=== PATIENT | female | born 1940 | race Caucasian/White ===

== ENCOUNTER 2021-09-20 13:55 | Emergency (ER) | payer MEDICARE, SELFPAY ==
--- NOTE | ~2021-09-20 | XR_ITS ---
EXAMINATION: XR CHEST CLINICAL INFORMATION: Shortness of breath COMPARISON: None TECHNIQUE: Frontal view of the chest was obtained. FINDINGS: The lungs are well expanded. There is no focal consolidation, edema, or effusion. No pneumothorax. The cardiomediastinal silhouette is within normal limits. No acute osseous abnormality. Sternotomy wires appear intact. XR/XR chest 1V IMPRESSION: No acute pulmonary finding.
[2021-09-20 14:25] VITALS: BP 213/112; PULSE 69; RESP 18; TEMP 36.6; O2SAT 98; BMI 22.6
--- NOTE | 2021-09-20 14:30 | ECG_ITS ---
Test Reason : hi bp Blood Pressure : / mmHG Vent. Rate : 067 BPM Atrial Rate : 067 BPM P-R Int : 192 ms QRS Dur : 096 ms QT Int : 396 ms P-R-T Axes : 000 050 037 degrees QTc Int : 418 ms Sinus rhythm with Premature atrial complexes Nonspecific ST and T wave abnormality Abnormal ECG When compared with ECG of 16-JUL-2009 09:18, Premature atrial complexes are now Present ST now depressed in Lateral leads Referred By: Generic ED Physician Electronically Signed By:KINGSTON JAMISON MD
[2021-09-20 14:47] LABS: MANUAL DIFF FLAG NO
[2021-09-20 14:48] LABS: Basophils Percent Auto 0.4 % (0-2); Eosinophils Percent Auto 0.4 % (0-4); Hematocrit 43.2 % (37.0-47.0); Hemoglobin 14.1 g/dl (12.0-16.0); Lymphocytes Absolute Auto 1.5 X10*3/uL (1.2-4.9); Lymphocytes Percent Auto 30.9 % (20-40); Mean Corpuscular HGB Conc 32.6 g/dl (31.0-35.0); Mean Corpuscular Hemoglobin 30.3 pg (27.0-33.0); Mean Corpuscular Volume 92.7 fL (80.0-98.0); Monocytes Absolute Auto 0.4 X10*3/uL (0.1-1.2); Monocytes Percent Auto 7.6 % (2-11); Neutrophils Absolute Auto 2.9 x10*3/uL (2.0-8.3); Neutrophils Percent Auto 60.7 % (45-73); Platelet Count 187 X10*3/uL (160-400); Red Blood Count 4.66 X10*6/uL (4.20-5.50); Red Cell Distribution Width 13.5 % (11.0-16.0); White Blood Count 4.8 X10*3/uL (4.8-10.8)
--- NOTE | 2021-09-20 15:04 | ED.GENADULT ---
HPI - General Adult General Chief complaint: General Medical Stated complaint: Dehydrated/SOB Time Seen by Provider: 09/20/21 15:04 Source: patient Mode of arrival: ambulatory Limitations: no limitations History of Present Illness HPI narrative: 2 days ago patient began feeling weak. No vomiting no diarrhea. Exteme fatigue. She feels occaisional palpitations lasting minutes. Today she felt short of breath and heaviness. Onset (ago): day(s) Severity: mild Associated symptoms: shortness of breath Related Data Allergies Allergy/AdvReac Type Severity Reaction Status Date / Time No Known Allergies Allergy Unverified 03/05/20 15:14 Review of Systems Constitutional: Constitutional: Reports no additional constitutional complaints Eyes: Eyes: Reports no additional eye complaints ENT: Denies dizziness Cardiovascular: Cardiovascular: Reports no additional cardiovascular complaints Respiratory: Respiratory: Reports as per HPI Gastrointestinal: Gastrointestinal: Reports no additional gastrointestinal complaints Genitourinary: Genitourinary: Reports no additional female genitourinary complaints Musculoskeletal: Musculoskeletal: Reports no additional musculoskeletal complaints Integumentary/Breasts: Skin/Breast: Denies rash Neurologic: Reports system reviewed and no additional complaints, except as documented, Denies dizziness and Denies Sensory deficit (Neuro) Psychiatric: Psychiatric: Denies anxiety PMFSH Past Medical History Medical History HTN (hypertension) Surgical History H/O heart surgery Social History Social History Patient Tobacco Use Status: Never used Tobacco Use of substances other than those prescribed or required for medical reasons: No Advance Directives: No Advance Directives Information Provided: No Physical Exam ED Vital Signs: Vital Signs - 24 hr 09/20/21 14:25 09/20/21 15:15 09/20/21 16:17 Temperature 98 F Pulse Rate 69 68 58 Respiratory Rate 18 18 15 Blood Pressure 213/112 H 197/86 H 167/65 H Pulse Oximetry 98 998 H 98 BMI result Body Mass Index 22.6 Const General: healthy appearing Nutritional Appearance: average body habitus Orientation/consciousness: oriented to person and patient oriented x3 Limitations: no limitations HENMT Head: Yes normal to inspection Ears: external ears normal General nose exam: Normal external nose present Mouth: Normal oral and palatal mucosa present and oropharynx normal Throat: Yes posterior oropharynx normal Eyes General: appearance normal, both eyes and all related structures Neck Neck: Yes normal visual inspection Chest Chest palpation & inspection: normal inspection of the chest Resp Auscultation: clear to auscultation bilaterally Cardio Jugular venous distension: no JVD Rate: regular rate Rhythm: regular rhythm Heart sounds: S1 normal heart sound present and S2 normal heart sound present GI Inspection: Yes normal to inspection Palpation (GI): Soft to palpation, nontender and No hepatosplenomegaly present Auscultation: normal bowel sounds General: Yes no CVA tenderness Back/Spine/Pelvis Back: no CVA tenderness Skin General skin exam: no rashes or lesions noted Neuro General: oriented to person and patient oriented x3 Cranial nerves: Yes CN's II-XII intact bilaterally Motor exam (neuro): 5/5 motor strength present throughout Sensory Exam: No Sensory deficit (Neuro) Extrem General: Yes normal to inspection Psych Appearance: grossly normal Course Reevaluation(s) Reevaluation #1: Patient feeling better, blood pressue down to 165 systolic. BNP with mild elevation but no signs of CHF will dc home Time: 16:29 Medical Decision Making Lab Data Result diagrams: 09/20/21 14:42 09/20/21 14:42 Labs: Lab Results 09/20/21 09/20/21 09/20/21 Range/Units 14:42 14:42 14:42 WBC 4.8 (4.8-10.8) X10*3/uL RBC 4.66 (4.20-5.50) X10*6/uL Hgb 14.1 (12.0-16.0) g/dl Hct 43.2 (37.0-47.0) % MCV 92.7 (80.0-98.0) fL MCH 30.3 (27.0-33.0) pg MCHC 32.6 (31.0-35.0) g/dl RDW 13.5 (11.0-16.0) % Plt Count 187 (160-400) X10*3/uL MPV 10.0 (9.4-12.3) fL Immature Gran % (Auto) 0.0 (0.0-0.4) % Neut % (Auto) 60.7 (45-73) % Lymph % (Auto) 30.9 (20-40) % Borden % (Auto) 7.6 (2-11) % Eos % (Auto) 0.4 (0-4) % Baso % (Auto) 0.4 (0-2) % Lymph # (Auto) 1.5 (1.2-4.9) X10*3/uL Borden # (Auto) 0.4 (0.1-1.2) X10*3/uL Eos # (Auto) 0.0 (0.0-0.4) X10*3/uL Baso # (Auto) 0.0 (0.0-0.2) X10*3/uL Abs Immat Gran (auto) 0.00 (0.00-0.03) X10*3/uL Absolute Neuts (auto) 2.9 (2.0-8.3) x10*3/uL Absolute Nucleated RBC 0.000 (0.0-0.012) X10*3/uL Nucleated RBC % (auto) 0.0 (0.0-0.2) /100WBC Sodium 140 (135-145) mmol/L Potassium 3.8 (3.3-5.1) mmol/L Chloride 103 (96-108) mmol/L Carbon Dioxide 32 H (22-29) mmol/L Anion Gap 9 L (12-20) BUN 16 (9-16) mg/dL Creatinine 0.91 (0.5-1.4) mg/dL Estim Creat Clear Calc 51.3 Estimated GFR 60 Random Glucose 155 H (60-115) mg/dL Calcium 10.0 (8.4-10.2) mg/dL Troponin I High Sens 3.7 (<3.5-17.0) ng/L B-Natriuretic Peptide 261 H (<100) pg/mL Imaging Data Chest x-ray: Radiologist's impression: FINDINGS: The lungs are well expanded. There is no focal consolidation, edema, or effusion. No pneumothorax. The cardiomediastinal silhouette is within normal limits. No acute osseous abnormality. Sternotomy wires appear intact. XR/XR chest 1V IMPRESSION: No acute pulmonary finding. Discharge Plan Discharge Clinical Impression: Essential (primary) hypertension, Sinus arrhythmia Patient Disposition: Home, Self-Care Instructions: Hypertension (ED) Additional Instructions: may need to alternate 50mg with 100mg of losartan every other day. Discuss with your primary care physician Referrals: Hung Pickering III, MD [Primary Care Provider] - 5 days
[2021-09-20 15:05] LABS: Anion Gap 9 (12-20); Blood Urea Nitrogen 16 mg/dL (9-16); Carbon Dioxide 32 mmol/L (22-29); Chloride 103 mmol/L (96-108); Creatinine Clr Calc Pharmacy 51.3; Estimated Glomerular Filt Rate 60; Glucose Random 155 mg/dL (60-115); Potassium 3.8 mmol/L (3.3-5.1); Sodium 140 mmol/L (135-145)
[2021-09-20 15:15] VITALS: BP 197/86; PULSE 68; RESP 18; O2SAT 998
[2021-09-20] MEDS: Losartan Potassium 50 MG TABLET PO (15:16)
[2021-09-20 15:41] LABS: B Type Natriuretic Peptide 261 pg/mL (<100); Troponin-I High Sensitivity 3.7 ng/L (<3.5-17.0)
[2021-09-20 16:17] VITALS: BP 167/65; PULSE 58; RESP 15; O2SAT 98
[2021-09-20 17:03] VITALS: BP 130/73; PULSE 61; RESP 18; O2SAT 98
== END 2021-09-20 17:05 | disposition home or self-care (01) ==
PROVIDERS: Emergency Provider Emergency Medicine; PCP Internal Medicine
DX: I10 Essential (primary) hypertension (principal); I49.8 Other specified cardiac arrhythmias; R06.02 Shortness of breath
CPT/HCPCS: 36415; 71045; 80048; 83880; 84484; 85025; 93005; 99283; 99284

== ENCOUNTER 2022-03-01 10:01 | Emergency (ER) | payer MEDICARE, SELFPAY ==
--- NOTE | ~2022-03-01 | XR_ITS ---
EXAMINATION: XR CHEST CLINICAL INFORMATION: Dyspnea. COMPARISON: 09/20/2021 chest radiographs. TECHNIQUE: Frontal view of the chest was obtained. FINDINGS: No significant abnormality is noted involving the heart, lungs, mediastinum, bony thorax or soft tissues. XR/XR chest 1V IMPRESSION: No acute cardiopulmonary process.
--- NOTE | ~2022-03-01 | CT_ITS ---
EXAMINATION: CT ANGIOGRAM OF THE CHEST WITH AND WITHOUT CONTRAST (CT PULMONARY ANGIOGRAM FOR PE) CLINICAL INFORMATION: Reason for Exam elevated ddimer, PACs, cough, dyspnea COMPARISON: Previous chest x-rays most recent earlier the same day TECHNIQUE: Prior to contrast administration, noncontrast localization images were obtained. Subsequently, multidetector volumetric imaging was performed from the thoracic inlet to below the diaphragms following the administration of 65 mL Omnipaque 350 intravenous contrast. No contrast reaction reported Sagittal, coronal, and MIP oblique sagittal reformatted images were obtained on the CT workstation, uploaded to PACS, and reviewed. This CT examination was performed using dose optimization techniques as appropriate, variously including the following: *Automated exposure control *Adjustment of mA and/or kV according to patient size (this includes techniques or standardized protocols for targeted exams where dose is matched to indication/reason for exam; i.e. extremities or head) *Use of iterative reconstruction technique Total exam dose-length product 244 mGy-cm FINDINGS: QUALITY OF STUDY/CONTRAST BOLUS: Satisfactory. PULMONARY ARTERIES: No central or segmental pulmonary emboli. THORACIC AORTA: No aneurysm or dissection. LUNG: There is biapical pleural parenchymal scarring. There is a scarring or subsegmental atelectasis in the anterior lateral right upper lobe. The lungs are otherwise clear. PLEURA: No pleural effusion or pneumothorax. MEDIASTINUM: The heart is enlarged. No pericardial effusion. No hilar or mediastinal lymphadenopathy. No evidence of septal bowing or right heart strain. CHEST WALL/AXILLA: No axillary or internal mammary lymphadenopathy. OSSEOUS STRUCTURES: No acute or suspicious osseous abnormality. There are degenerative changes of the spine. There are median sternotomy wires. UPPER ABDOMEN: There is reflux of contrast into the hepatic veins to suggest elevated right heart pressures. There is a left renal cyst. There is question of a fold thickening of the stomach versus changes due to underdistention. CT/CT angio chest PE protocol IMPRESSION: No evidence of pulmonary embolism. Enlarged heart. Reflux of contrast into the hepatic veins suggestive of increased right heart pressures. VTE: negative
[2022-03-01 10:15] VITALS: BP 120/78; BP 197/80; PULSE 84; PULSE 85; RESP 18; O2SAT 97; BMI 23.8
--- NOTE | 2022-03-01 10:21 | ECG_ITS ---
Test Reason : palpitations Blood Pressure : / mmHG Vent. Rate : 070 BPM Atrial Rate : 070 BPM P-R Int : 200 ms QRS Dur : 096 ms QT Int : 402 ms P-R-T Axes : 088 052 055 degrees QTc Int : 434 ms Sinus rhythm with Premature atrial complexes Otherwise normal ECG When compared with ECG of 20-SEP-2021 14:28, No significant change was found Referred By: Renee Murry Electronically Signed By:NED BARRAZA
--- NOTE | 2022-03-01 10:40 | ED.URI ---
HPI - URI/Sore Throat General Chief Complaint: General Medical Stated Complaint: DIFF BREATHING,COUGH,WEAKNESS Time Seen by Provider: 03/01/22 10:19 Source: patient Mode of arrival: EMS Limitations: no limitations History of Present Illness HPI Narrative: 81 yo female with hx of HTN, prior PACs notes that she tested positive for COVID 2 weeks ago - had fevers, sore throat and cough. She is not vaccinated. She obtained an Rx for ivermection 15mg daily for 5 days from out of state ([place] prescriber). She notes she did better but has a persistent cough that is nagging to her. She has tried other natural methods such as honey, onions and turmeric. She also reports taking Robitussin DM last night. She came to the ED because of the cough - found to have frequent PACs by EMS. MD elicited complaint: cough Pertinent past history: other (COVID 2 weeks ago) Onset (ago): week(s) (2) Consistency: intermittent Severity: moderate Able to tolerate fluids by mouth: Yes Exacerbating factors: other (coughing) Relieving factors: other (natural measures, OTC cough medicine) Associated symptoms: cough Treatments prior to arrival: cold medicine and other Related Data Previous Rx's Medication Instructions Recorded benzonatate 100 mg capsule 100 mg PO TID PRN cough #14 caps 03/01/22 Allergies Allergy/AdvReac Type Severity Reaction Status Date / Time No Known Allergies Allergy Unverified 03/05/20 15:14 Review of Systems Review of Systems: Constitutional : No Fever, No Chills ENT/Mouth : No sore throat, No Rhinorrhea Eyes: No Eye Pain, No Swelling, No Redness Cardiovascular : No Chest Pain, No SOB, pos cough Respiratory : pos Cough, No Sputum, No Wheezing Gastrointestinal : No Nausea, No Vomiting, No Diarrhea Genitourinary : No Dysuria, No Urinary Frequency, No Hematuria, Musculoskeletal : No joint pain, No Myalgias, No Joint Swelling Skin : No Skin Lesions, No rash Neuro : No Weakness, No Numbness, No Dizziness, No Headache Psych : No Anxiety/Panic, No Depression Heme/Lymph: No Bruising, No Bleeding,No Lymphadenopathy Endocrine : No Polyuria, No Polydipsia All other systems reviewed and are negative [facility] Past Medical History Attestation statement: The following information was validated with the patient. Medical History HTN (hypertension) PAC (premature atrial contraction) Surgical History H/O heart surgery Social History Social History Patient Tobacco Use Status: Never used Tobacco Use of substances other than those prescribed or required for medical reasons: No Advance Directives: Yes Advance Directives Information Provided: Yes Advance Directives on File: No Physical Exam Vital Signs: Vital Signs: Last Vital Signs Pulse 84 03/01/22 10:15 Resp 18 03/01/22 10:15 BP 197/80 H 03/01/22 10:15 Pulse Ox 97 03/01/22 10:15 O2 Del Method 03/01/22 10:15 BMI result Body Mass Index 23.8 Appearance: Alert. Oriented X3. No acute distress. Eyes: Pupils equal, round and reactive to light. ENT: Pharynx normal. Neck: Normal inspection. Neck supple. CVS: irregular heart rate and rhythm. Pulses normal. Respiratory: No respiratory distress. Breath sounds normal. Abdomen: Soft and non-tender. Skin: Skin warm and dry. Normal skin color. Normal skin turgor. Extremities: No lower extremity edema. No calf ttp Neuro: Oriented X 3. No motor deficit. No sensory deficit. Course Course Course Narrative: ddimer is above VTE limit will order CTA negative PE stable for DC MDM - URI/Sore Throat MDM Narrative Medical decision making narrative: 81 yo female with hx of HTN, PACs in past, unvaccinated for COVID - dx 2 weeks ago treated herself with 15mg ivermectin daily for 5 days. At this time she presents with cough that is annoying to her. It will not resolve. She is not hypoxic, has no CP. She is HTNive but this could be due to the fact that she took OTC medications last night that likely caused increase in her BP. She has chronic PACs - labs, CXR for pneumonia ordered. Dispo per results and finidngs. Lab Data Result diagrams: 03/01/22 10:44 03/01/22 10:44 Labs: Lab Results 03/01/22 03/01/22 03/01/22 Range/Units 10:44 10:44 10:44 WBC 5.0 (4.8-10.8) X10*3/uL RBC 4.70 (4.20-5.50) X10*6/uL Hgb 13.8 (12.0-16.0) g/dl Hct 41.5 (37.0-47.0) % MCV 88.3 (80.0-98.0) fL MCH 29.4 (27.0-33.0) pg MCHC 33.3 (31.0-35.0) g/dl RDW 13.6 (11.0-16.0) % Plt Count 220 (160-400) X10*3/uL MPV 10.0 (9.4-12.3) fL Immature Gran % (Auto) 0.4 (0.0-0.4) % Neut % (Auto) 66.0 (45-73) % Lymph % (Auto) 24.6 (20-40) % Banner % (Auto) 8.4 (2-11) % Eos % (Auto) 0.4 (0-4) % Baso % (Auto) 0.2 (0-2) % Lymph # (Auto) 1.2 (1.2-4.9) X10*3/uL Banner # (Auto) 0.4 (0.1-1.2) X10*3/uL Eos # (Auto) 0.0 (0.0-0.4) X10*3/uL Baso # (Auto) 0.0 (0.0-0.2) X10*3/uL Abs Immat Gran (auto) 0.02 (0.00-0.03) X10*3/uL Absolute Neuts (auto) 3.3 (2.0-8.3) x10*3/uL Absolute Nucleated RBC 0.000 (0.0-0.012) X10*3/uL Nucleated RBC % (auto) 0.0 (0.0-0.2) /100WBC D-Dimer High Sensitivty 320 NG/ML Sodium 142 (135-145) mmol/L Potassium 4.1 (3.3-5.1) mmol/L Chloride 102 (96-108) mmol/L Carbon Dioxide 32 H (22-29) mmol/L Anion Gap 12 (12-20) BUN 17 H (9-16) mg/dL Creatinine 0.78 (0.5-1.4) mg/dL Estim Creat Clear Calc 59.0 Estimated GFR > 60 Random Glucose 93 (60-115) mg/dL Calcium 9.5 (8.4-10.2) mg/dL Magnesium 2.2 (1.6-2.6) mg/dL Total Bilirubin 0.9 (0.0-1.0) mg/dL Direct Bilirubin 0.4 (0.0-0.5) mg/dL AST 31 (5-31) U/L ALT 37 H (0-31) U/L Alkaline Phosphatase 69 (39-117) U/L Troponin I High Sens (<3.5-17.0) ng/L Total Protein 7.2 (6.5-8.0) g/dL Albumin 4.1 (3.5-5.0) g/dL 03/01/22 Range/Units 10:44 WBC (4.8-10.8) X10*3/uL RBC (4.20-5.50) X10*6/uL Hgb (12.0-16.0) g/dl Hct (37.0-47.0) % MCV (80.0-98.0) fL MCH (27.0-33.0) pg MCHC (31.0-35.0) g/dl RDW (11.0-16.0) % Plt Count (160-400) X10*3/uL MPV (9.4-12.3) fL Immature Gran % (Auto) (0.0-0.4) % Neut % (Auto) (45-73) % Lymph % (Auto) (20-40) % Banner % (Auto) (2-11) % Eos % (Auto) (0-4) % Baso % (Auto) (0-2) % Lymph # (Auto) (1.2-4.9) X10*3/uL Banner # (Auto) (0.1-1.2) X10*3/uL Eos # (Auto) (0.0-0.4) X10*3/uL Baso # (Auto) (0.0-0.2) X10*3/uL Abs Immat Gran (auto) (0.00-0.03) X10*3/uL Absolute Neuts (auto) (2.0-8.3) x10*3/uL Absolute Nucleated RBC (0.0-0.012) X10*3/uL Nucleated RBC % (auto) (0.0-0.2) /100WBC D-Dimer High Sensitivty NG/ML Sodium (135-145) mmol/L Potassium (3.3-5.1) mmol/L Chloride (96-108) mmol/L Carbon Dioxide (22-29) mmol/L Anion Gap (12-20) BUN (9-16) mg/dL Creatinine (0.5-1.4) mg/dL Estim Creat Clear Calc Estimated GFR Random Glucose (60-115) mg/dL Calcium (8.4-10.2) mg/dL Magnesium (1.6-2.6) mg/dL Total Bilirubin (0.0-1.0) mg/dL Direct Bilirubin (0.0-0.5) mg/dL AST (5-31) U/L ALT (0-31) U/L Alkaline Phosphatase (39-117) U/L Troponin I High Sens < 3.5 (<3.5-17.0) ng/L Total Protein (6.5-8.0) g/dL Albumin (3.5-5.0) g/dL ECG Data Attestation: I personally reviewed and interpreted this ECG as follows: ECG interpretation date: 03/01/22 ECG interpretation time: 10:59 Interpretation: Rate: 70 Rhythm: NSR with PACs frequent Anderson: normal Normal P waves. Normal DONTE. Normal QRS complex. ST T wave : normal no KARLIE qTC: normal prior studies: no acute ischemia The study has been interpreted contemporaneously by me. . Discharge Plan Discharge Clinical Impression: Acute viral syndrome Cough Qualifiers: Cough type: subacute Qualified Code(s): R05.2 - Subacute cough Patient Disposition: Home, Self-Care Instructions: Cold Symptoms (ED), Acute Cough (ED) Additional Instructions: return to ED for any worsening symptoms or concerns no over the counter cough medicines unless they are for patients with high blood pressure keep an eye on your blood pressure - your heart appears large on CT scan please follow up with PCP FINDINGS: QUALITY OF STUDY/CONTRAST BOLUS: Satisfactory. PULMONARY ARTERIES: No central or segmental pulmonary emboli.? THORACIC AORTA: No aneurysm or dissection. LUNG: There is biapical pleural parenchymal scarring. There is a scarring or subsegmental atelectasis in the anterior lateral right upper lobe. The lungs are otherwise clear. PLEURA: No pleural effusion or pneumothorax. MEDIASTINUM: The heart is enlarged. No pericardial effusion.? No hilar or mediastinal lymphadenopathy.? No evidence of septal bowing or right heart strain. CHEST WALL/AXILLA: No axillary or internal mammary lymphadenopathy. OSSEOUS STRUCTURES: No acute or suspicious osseous abnormality. There are degenerative changes of the spine. There are median sternotomy wires. UPPER ABDOMEN: There is reflux of contrast into the hepatic veins to suggest elevated right heart pressures. There is a left renal cyst. There is question of a fold thickening of the stomach versus changes due to underdistention. CT/CT angio chest PE protocol IMPRESSION: No evidence of pulmonary embolism. Enlarged heart. Reflux of contrast into the hepatic veins suggestive of increased right heart pressures. ? VTE: negative Prescriptions: New benzonatate 100 mg capsule 100 mg PO TID PRN (Reason: cough) Qty: 14 0RF Referrals: Physician,Unknown J [Primary Care Provider] - (PCP in 1 week)
[2022-03-01 10:51] LABS: MANUAL DIFF FLAG NO
[2022-03-01 10:54] LABS: Basophils Percent Auto 0.2 % (0-2); Eosinophils Percent Auto 0.4 % (0-4); Hematocrit 41.5 % (37.0-47.0); Hemoglobin 13.8 g/dl (12.0-16.0); Imm Gran Abs Auto 0.02 X10*3/uL (0.00-0.03); Imm Gran Pct Auto 0.4 % (0.0-0.4); Lymphocytes Absolute Auto 1.2 X10*3/uL (1.2-4.9); Lymphocytes Percent Auto 24.6 % (20-40); Mean Corpuscular HGB Conc 33.3 g/dl (31.0-35.0); Mean Corpuscular Hemoglobin 29.4 pg (27.0-33.0); Mean Corpuscular Volume 88.3 fL (80.0-98.0); Monocytes Absolute Auto 0.4 X10*3/uL (0.1-1.2); Monocytes Percent Auto 8.4 % (2-11); Neutrophils Absolute Auto 3.3 x10*3/uL (2.0-8.3); Platelet Count 220 X10*3/uL (160-400); Red Cell Distribution Width 13.6 % (11.0-16.0)
[2022-03-01 11:03] LABS: D Dimer High Sensitivity 320 NG/ML
[2022-03-01 11:08] LABS: Alanine Aminotransferase 37 U/L (0-31); Albumin Level 4.1 g/dL (3.5-5.0); Alkaline Phosphatase 69 U/L (39-117); Anion Gap 12 (12-20); Aspartate Amino Transferase 31 U/L (5-31); Bilirubin Direct 0.4 mg/dL (0.0-0.5); Bilirubin Total 0.9 mg/dL (0.0-1.0); Blood Urea Nitrogen 17 mg/dL (9-16); Calcium 9.5 mg/dL (8.4-10.2); Carbon Dioxide 32 mmol/L (22-29); Chloride 102 mmol/L (96-108); Estimated Glomerular Filt Rate > 60; Glucose Random 93 mg/dL (60-115); Magnesium 2.2 mg/dL (1.6-2.6); Potassium 4.1 mmol/L (3.3-5.1); Sodium 142 mmol/L (135-145); Total Protein 7.2 g/dL (6.5-8.0)
[2022-03-01 11:12] LABS: Troponin-I High Sensitivity < 3.5 ng/L (<3.5-17.0)
[2022-03-01] MEDS: iohexoL 350 MG/ML 100 ML INFUS..BTL IV (12:09)
== END 2022-03-01 14:35 | disposition home or self-care (01) ==
PROVIDERS: Emergency Provider Emergency Medicine
DX: B34.9 Viral infection, unspecified (principal); R05.2 Subacute cough; I10 Essential (primary) hypertension; I49.1 Atrial premature depolarization
CPT/HCPCS: 36415; 71045; 71275; 80048; 80076; 83735; 84484; 85025; 85379; 93005; 99284; Q9967

== ENCOUNTER 2022-05-09 12:09 | Emergency (ER) | payer MEDICARE, SELFPAY ==
--- NOTE | ~2022-05-09 | XR_ITS ---
EXAMINATION: XR CHEST CLINICAL INFORMATION: Generalized weakness. Rule out pneumonia COMPARISON: None TECHNIQUE: Frontal view of the chest was obtained. FINDINGS: The lungs are well-expanded and clear of acute process. The heart size and pulmonary vascularity is normal. There is mild dextro scoliosis dorsal spine. No lytic process. XR/XR chest 1V IMPRESSION: Unremarkable chest examination.
[2022-05-09 12:11] VITALS: BP 215/102; PULSE 67; RESP 18; TEMP 36.6; O2SAT 98; BMI 22.8
--- NOTE | 2022-05-09 12:11 | ECG_ITS ---
Test Reason : palpatations Blood Pressure : / mmHG Vent. Rate : 059 BPM Atrial Rate : 059 BPM P-R Int : 170 ms QRS Dur : 084 ms QT Int : 434 ms P-R-T Axes : 000 046 033 degrees QTc Int : 429 ms Sinus bradycardia with Premature supraventricular complexes RSR' or QR pattern in V1 suggests right ventricular conduction delay Borderline ECG When compared with ECG of 01-MAR-2022 10:24, No significant change was found Referred By: Juanito Reilly Electronically Signed By:IVANNA NGUYEN MD
--- NOTE | 2022-05-09 12:12 | ED.GENADULT ---
HPI - General Adult General Chief complaint: Arrhythmia/Palpitations Stated complaint: weak high bp Time Seen by Provider: 05/09/22 13:29 Related Data Previous Rx's Medication Instructions Recorded benzonatate 100 mg capsule 100 mg PO TID PRN cough #14 caps 03/01/22 Allergies Allergy/AdvReac Type Severity Reaction Status Date / Time No Known Allergies Allergy Unverified 03/05/20 15:14 [facility] Past Medical History Medical History HTN (hypertension) PAC (premature atrial contraction) Surgical History H/O heart surgery Social History Social History Patient Tobacco Use Status: Never used Tobacco Advance Directives: No Advance Directives Information Provided: Yes Physical Exam ED Vital Signs: BMI result Body Mass Index 22.8 Course Course Course Narrative: 81 year old female presents to the ED with multiple complaints. Her of 58 years on April 28 She states it was very sudden. She now lives alone and feels like she is dehydrated and not drinking enough. She denies any falls or injuries but states she gets dehydrated easily She denies fever chills cough nausea vomiting or diarrhea. Since Monday has felt tired and that she feels she needs to get check for her blood pressure and decreased appetite. No belly pain fever chills cough. Normal strength. I will check labs cbc, bmp and try to give fluids. I will have the patient seen after this exam. Seen in triage as a medical screening exam Medications Administered Discontinued Medications Generic Name Dose Route Start Last Admin Trade Name Freq PRN Reason Stop Dose Admin Sodium Chloride 1,000 mls @ 999 mls/hr 05/09/22 12:15 05/09/22 17:00 Ns IV 05/09/22 13:15 Infused .Q1H1M JESUS Infusion Sodium Chloride 1,000 mls @ 999 mls/hr 05/09/22 13:48 05/09/22 15:43 Ns IV 05/09/22 14:48 Infused .Q1H1M ONE Infusion Medical Decision Making Lab Data Result diagrams: 05/09/22 12:37 05/09/22 12:37 Labs: Lab Results 11/05/09/22 05/09/22 Range/Units 12:37 12:37 13:53 WBC 5.9 (4.8-10.8) X10*3/uL RBC 4.74 (4.20-5.50) X10*6/uL Hgb 14.4 (12.0-16.0) g/dl Hct 43.4 (37.0-47.0) % MCV 91.6 (80.0-98.0) fL MCH 30.4 (27.0-33.0) pg MCHC 33.2 (31.0-35.0) g/dl RDW 13.7 (11.0-16.0) % Plt Count 192 (160-400) X10*3/uL MPV 10.3 (9.4-12.3) fL Immature Gran % (Auto) 0.2 (0.0-0.4) % Neut % (Auto) 68.2 (45-73) % Lymph % (Auto) 23.5 (20-40) % [place] % (Auto) 6.6 (2-11) % Eos % (Auto) 1.0 (0-4) % Baso % (Auto) 0.5 (0-2) % Lymph # (Auto) 1.4 (1.2-4.9) X10*3/uL [place] # (Auto) 0.4 (0.1-1.2) X10*3/uL Eos # (Auto) 0.1 (0.0-0.4) X10*3/uL Baso # (Auto) 0.0 (0.0-0.2) X10*3/uL Abs Immat Gran (auto) 0.01 (0.00-0.03) X10*3/uL Absolute Neuts (auto) 4.0 (2.0-8.3) x10*3/uL Absolute Nucleated RBC 0.000 (0.0-0.012) X10*3/uL Nucleated RBC % (auto) 0.0 (0.0-0.2) /100WBC Sodium 138 (135-145) mmol/L Potassium 3.6 (3.3-5.1) mmol/L Chloride 101 (96-108) mmol/L Carbon Dioxide 31 H (22-29) mmol/L Anion Gap 10 L (12-20) BUN 13 (9-16) mg/dL Creatinine 0.81 (0.5-1.4) mg/dL Estim Creat Clear Calc 56.8 Estimated GFR > 60 Random Glucose 114 (60-115) mg/dL Calcium 9.5 (8.4-10.2) mg/dL Total Bilirubin 0.9 (0.0-1.0) mg/dL Direct Bilirubin 0.3 (0.0-0.5) mg/dL AST 25 (5-31) U/L ALT 22 (0-31) U/L Alkaline Phosphatase 60 (39-117) U/L Troponin I High Sens 4.4 (<3.5-17.0) ng/L Total Protein 7.0 (6.5-8.0) g/dL Albumin 4.1 (3.5-5.0) g/dL Lipase 22 (8-78) U/L Urine Color Urine Appearance Urine pH (5.0-9.0) Ur Specific [place] (1.005-1.025) Urine Protein (Neg-Trace) mg/dL Urine Glucose (UA) (Negative) mg/dL Urine Ketones (Negative) mg/dL Urine Blood (Negative) Urine Nitrite (Negative) Ur Leukocyte Esterase (Negative) Urine RBC (0-2) /HPF Urine WBC (0-5) /HPF Ur Squamous Epith Cells (0-2) /HPF Urine Bacteria (None Seen) Hyaline Casts (0-2) /LPF 05/09/ Range/Units 13:53 WBC (4.8-10.8) X10*3/uL RBC (4.20-5.50) X10*6/uL Hgb (12.0-16.0) g/dl Hct (37.0-47.0) % MCV (80.0-98.0) fL MCH (27.0-33.0) pg MCHC (31.0-35.0) g/dl RDW (11.0-16.0) % Plt Count (160-400) X10*3/uL MPV (9.4-12.3) fL Immature Gran % (Auto) (0.0-0.4) % Neut % (Auto) (45-73) % Lymph % (Auto) (20-40) % [place] % (Auto) (2-11) % Eos % (Auto) (0-4) % Baso % (Auto) (0-2) % Lymph # (Auto) (1.2-4.9) X10*3/uL [place] # (Auto) (0.1-1.2) X10*3/uL Eos # (Auto) (0.0-0.4) X10*3/uL Baso # (Auto) (0.0-0.2) X10*3/uL Abs Immat Gran (auto) (0.00-0.03) X10*3/uL Absolute Neuts (auto) (2.0-8.3) x10*3/uL Absolute Nucleated RBC (0.0-0.012) X10*3/uL Nucleated RBC % (auto) (0.0-0.2) /100WBC Sodium (135-145) mmol/L Potassium (3.3-5.1) mmol/L Chloride (96-108) mmol/L Carbon Dioxide (22-29) mmol/L Anion Gap (12-20) BUN (9-16) mg/dL Creatinine (0.5-1.4) mg/dL Estim Creat Clear Calc Estimated GFR Random Glucose (60-115) mg/dL Calcium (8.4-10.2) mg/dL Total Bilirubin (0.0-1.0) mg/dL Direct Bilirubin (0.0-0.5) mg/dL AST (5-31) U/L ALT (0-31) U/L Alkaline Phosphatase (39-117) U/L Troponin I High Sens (<3.5-17.0) ng/L Total Protein (6.5-8.0) g/dL Albumin (3.5-5.0) g/dL Lipase (8-78) U/L Urine Color Straw Urine Appearance Hazy Urine pH 7.5 (5.0-9.0) Ur Specific [place] 1.010 (1.005-1.025) Urine Protein Negative (Neg-Trace) mg/dL Urine Glucose (UA) Negative (Negative) mg/dL Urine Ketones Negative (Negative) mg/dL Urine Blood Negative (Negative) Urine Nitrite Negative (Negative) Ur Leukocyte Esterase Trace H (Negative) Urine RBC 0-2 (0-2) /HPF Urine WBC 0-5 (0-5) /HPF Ur Squamous Epith Cells 3-5 (0-2) /HPF Urine Bacteria Trace (None Seen) Hyaline Casts 0-2 (0-2) /LPF Discharge Plan Discharge Clinical Impression: Generalized weakness, Dehydration, Feeling grief Patient Disposition: Home, Self-Care Instructions: Dehydration (ED) Prescriptions: No Action benzonatate 100 mg capsule 100 mg PO TID PRN (Reason: cough) Qty: 14 0RF Referrals: Physician,Unknown J [Primary Care Provider] - Interventions: ED Discharge Assessment Last Done: 05/09/22 17:33 Discharge Date/Time: 05/09/22 17:10
[2022-05-09 12:41] LABS: MANUAL DIFF FLAG NO
[2022-05-09 12:46] LABS: Basophils Percent Auto 0.5 % (0-2); Eosinophils Absolute Auto 0.1 X10*3/uL (0.0-0.4); Hematocrit 43.4 % (37.0-47.0); Hemoglobin 14.4 g/dl (12.0-16.0); Imm Gran Abs Auto 0.01 X10*3/uL (0.00-0.03); Imm Gran Pct Auto 0.2 % (0.0-0.4); Lymphocytes Absolute Auto 1.4 X10*3/uL (1.2-4.9); Lymphocytes Percent Auto 23.5 % (20-40); Mean Corpuscular HGB Conc 33.2 g/dl (31.0-35.0); Mean Corpuscular Hemoglobin 30.4 pg (27.0-33.0); Mean Corpuscular Volume 91.6 fL (80.0-98.0); Mean Platelet Volume 10.3 fL (9.4-12.3); Monocytes Absolute Auto 0.4 X10*3/uL (0.1-1.2); Monocytes Percent Auto 6.6 % (2-11); Neutrophils Percent Auto 68.2 % (45-73); Platelet Count 192 X10*3/uL (160-400); Red Blood Count 4.74 X10*6/uL (4.20-5.50); Red Cell Distribution Width 13.7 % (11.0-16.0); White Blood Count 5.9 X10*3/uL (4.8-10.8)
[2022-05-09 13:01] LABS: Alanine Aminotransferase 22 U/L (0-31); Albumin Level 4.1 g/dL (3.5-5.0); Alkaline Phosphatase 60 U/L (39-117); Anion Gap 10 (12-20); Aspartate Amino Transferase 25 U/L (5-31); Bilirubin Direct 0.3 mg/dL (0.0-0.5); Bilirubin Total 0.9 mg/dL (0.0-1.0); Blood Urea Nitrogen 13 mg/dL (9-16); Calcium 9.5 mg/dL (8.4-10.2); Carbon Dioxide 31 mmol/L (22-29); Chloride 101 mmol/L (96-108); Creatinine Clr Calc Pharmacy 56.8; Estimated Glomerular Filt Rate > 60; Glucose Random 114 mg/dL (60-115); Lipase 22 U/L (8-78); Potassium 3.6 mmol/L (3.3-5.1); Sodium 138 mmol/L (135-145)
[2022-05-09 13:24] VITALS: BP 173/93; PULSE 60; RESP 16; TEMP 36.7; O2SAT 99
--- NOTE | 2022-05-09 13:49 | ED_ITS ---
HPI - General Adult General Chief complaint: Arrhythmia/Palpitations Stated complaint: weak high bp Time Seen by Provider: 05/09/22 13:29 Source: patient and family (Daughter) Mode of arrival: ambulatory Limitations: no limitations History of Present Illness HPI narrative: 81-year-old female came in for evaluation of generalized weakness and possible dehydration. Patient is prone to dehydration if she does not drink fluids, patient admitted that she is not drinking enough fluid and felt dehydrated since yesterday with generalized weakness, patient is forcing to drink water with electrolyte powder since yesterday, known to have history of high blood pressure take losartan 100 mg daily, patient also take propanolol prescribed as p.r.n. palpitation took 1 in the morning. No CP, no SOB, no abdominal pain. Related Data Previous Rx's Medication Instructions Recorded benzonatate 100 mg capsule 100 mg PO TID PRN cough #14 caps 03/01/22 Allergies Allergy/AdvReac Type Severity Reaction Status Date / Time No Known Allergies Allergy Unverified 03/05/20 15:14 Review of Systems Review of Systems: All other systems are reviewed and are negative Constitutional: Reports as per HPI and Reports no additional constitutional complaints Eyes: Reports as per HPI and Reports no additional eye complaints Reports system reviewed and no additional complaints, except as documented Cardiovascular: Reports as per HPI and Reports no additional cardiovascular complaints Respiratory: Reports as per HPI and Reports no additional respiratory complaints Gastrointestinal: Reports as per HPI and Reports no additional gastrointestinal complaints Genitourinary: Reports no additional female genitourinary complaints Musculoskeletal: Reports no additional musculoskeletal complaints Skin/Breast: Reports system reviewed and no additional complaints, except as docu Psychiatric: Reports no additional psychiatric complaints Endocrine: Reports no additional endocrine complaints Hematologic/Lymphatic: Reports no additional hematologic/lymphatic complaints Allergic/Immunologic: Reports no additional allergic/immunologic complaints Reports system reviewed and no additional complaints, except as documented and Reports Abnormal speech present [facility] Past Medical History Medical History HTN (hypertension) PAC (premature atrial contraction) Surgical History H/O heart surgery Social History Social History Patient Tobacco Use Status: Never used Tobacco Advance Directives: No Advance Directives Information Provided: Yes Physical Exam ED Vital Signs: Vital Signs - 24 hr 05/09/22 12:11 05/09/22 13:24 05/09/22 15:48 Temperature 97.8 F 98.0 F 97.9 F Pulse Rate 67 60 66 Respiratory Rate 18 16 18 Blood Pressure 215/102 H 173/93 H 170/77 H Pulse Oximetry 98 99 97 Oxygen Delivery Method Room Air Room Air Room Air BMI result Body Mass Index 22.8 Vital signs have been reviewed as appeared to be correct. Blood pressure normal. Heart rate normal. Respiration rate normal. Temperature normal. Oxygen saturation normal. Appearance: Alert. Oriented X3. No acute distress. Head: Normal external exam. Normocephalic. Atraumatic. No Dalton signs noted. No raccoon eyes noted Eyes: PERRLA. EOMI. Conjunctiva and sclera normal. Eyelids normal. ENT: TM's Normal. Pharynx normal. Uvula midline. Moist mucous membranes. No trismus noted. No drooling noted. No muffled voice noted. Neck: Normal inspection. Neck supple. FROM. No adenopathy. Thyroid Normal. No meningeal signs. No neck mass noted. CVS: Normal heart rate and rhythm. Heart sound normal. No murmurs noted. Pulses normal throughout. Respiratory: No respiratory distress. Painless inspiration. Breath sounds normal. No wheezes/rales/rhonchi noted. Chest nontender. No accessory muscle usage noted or decreased air movement noted. Abdomen: Soft and nontender. Bowel sounds normal in all 4 quadrants. No distention noted. No organomegaly noted. No visible injury noted. Back: No CVA tenderness. Full range of motion noted. Skin: Skin warm and dry. Normal skin color. Normal skin turgor. No rashes/lesions/lacerations noted. Extremities: No lower extremity edema. Extremities exhibit normal range of motion. Extremities nontender. Neuro: Oriented X 3. Cranial nerve exam: II-XII are grossly intact No motor deficit. No sensory deficit. Reflexes normal. Course Course Course Narrative: 81-year-old female came in for generalized weakness and subjective feeling of dehydration, patient labs were unremarkable, patient has no UTI symptoms, patient received fluids felt better after the fluids, patient lost her 2 weeks ago which could be secondary to a grieving feeling no depression, no SI, no HI. Medications Administered Discontinued Medications Generic Name Dose Route Start Last Admin Trade Name Delta PRN Reason Stop Dose Admin Sodium Chloride 1,000 mls @ 999 mls/hr 05/09/22 12:15 05/09/22 15:44 Ns IV 05/09/22 13:15 999 mls/hr .Q1H1M JESUS Administration Sodium Chloride 1,000 mls @ 999 mls/hr 05/09/22 13:48 05/09/22 15:43 Ns IV 05/09/22 14:48 Infused .Q1H1M ONE Infusion Medical Decision Making Lab Data Lab results reviewed: Yes I reviewed the patient's lab results. Result diagrams: 05/09/22 12:37 05/09/22 12:37 Labs: Lab Results 05/09/22 05/09/22 05/09/22 Range/Units 12:37 12:37 13:53 WBC 5.9 (4.8-10.8) X10*3/uL RBC 4.74 (4.20-5.50) X10*6/uL Hgb 14.4 (12.0-16.0) g/dl Hct 43.4 (37.0-47.0) % MCV 91.6 (80.0-98.0) fL MCH 30.4 (27.0-33.0) pg MCHC 33.2 (31.0-35.0) g/dl RDW 13.7 (11.0-16.0) % Plt Count 192 (160-400) X10*3/uL MPV 10.3 (9.4-12.3) fL Immature Gran % (Auto) 0.2 (0.0-0.4) % Neut % (Auto) 68.2 (45-73) % Lymph % (Auto) 23.5 (20-40) % [place] % (Auto) 6.6 (2-11) % Eos % (Auto) 1.0 (0-4) % Baso % (Auto) 0.5 (0-2) % Lymph # (Auto) 1.4 (1.2-4.9) X10*3/uL [place] # (Auto) 0.4 (0.1-1.2) X10*3/uL Eos # (Auto) 0.1 (0.0-0.4) X10*3/uL Baso # (Auto) 0.0 (0.0-0.2) X10*3/uL Abs Immat Gran (auto) 0.01 (0.00-0.03) X10*3/uL Absolute Neuts (auto) 4.0 (2.0-8.3) x10*3/uL Absolute Nucleated RBC 0.000 (0.0-0.012) X10*3/uL Nucleated RBC % (auto) 0.0 (0.0-0.2) /100WBC Sodium 138 (135-145) mmol/L Potassium 3.6 (3.3-5.1) mmol/L Chloride 101 (96-108) mmol/L Carbon Dioxide 31 H (22-29) mmol/L Anion Gap 10 L (12-20) BUN 13 (9-16) mg/dL Creatinine 0.81 (0.5-1.4) mg/dL Estim Creat Clear Calc 56.8 Estimated GFR > 60 Random Glucose 114 (60-115) mg/dL Calcium 9.5 (8.4-10.2) mg/dL Total Bilirubin 0.9 (0.0-1.0) mg/dL Direct Bilirubin 0.3 (0.0-0.5) mg/dL AST 25 (5-31) U/L ALT 22 (0-31) U/L Alkaline Phosphatase 60 (39-117) U/L Troponin I High Sens 4.4 (<3.5-17.0) ng/L Total Protein 7.0 (6.5-8.0) g/dL Albumin 4.1 (3.5-5.0) g/dL Lipase 22 (8-78) U/L Urine Color Urine Appearance Urine pH (5.0-9.0) Ur Specific [place] (1.005-1.025) Urine Protein (Neg-Trace) mg/dL Urine Glucose (UA) (Negative) mg/dL Urine Ketones (Negative) mg/dL Urine Blood (Negative) Urine Nitrite (Negative) Ur Leukocyte Esterase (Negative) Urine RBC (0-2) /HPF Urine WBC (0-5) /HPF Ur Squamous Epith Cells (0-2) /HPF Urine Bacteria (None Seen) Hyaline Casts (0-2) /LPF 05/09/22 Range/Units 13:53 WBC (4.8-10.8) X10*3/uL RBC (4.20-5.50) X10*6/uL Hgb (12.0-16.0) g/dl Hct (37.0-47.0) % MCV (80.0-98.0) fL MCH (27.0-33.0) pg MCHC (31.0-35.0) g/dl RDW (11.0-16.0) % Plt Count (160-400) X10*3/uL MPV (9.4-12.3) fL Immature Gran % (Auto) (0.0-0.4) % Neut % (Auto) (45-73) % Lymph % (Auto) (20-40) % [place] % (Auto) (2-11) % Eos % (Auto) (0-4) % Baso % (Auto) (0-2) % Lymph # (Auto) (1.2-4.9) X10*3/uL [place] # (Auto) (0.1-1.2) X10*3/uL Eos # (Auto) (0.0-0.4) X10*3/uL Baso # (Auto) (0.0-0.2) X10*3/uL Abs Immat Gran (auto) (0.00-0.03) X10*3/uL Absolute Neuts (auto) (2.0-8.3) x10*3/uL Absolute Nucleated RBC (0.0-0.012) X10*3/uL Nucleated RBC % (auto) (0.0-0.2) /100WBC Sodium (135-145) mmol/L Potassium (3.3-5.1) mmol/L Chloride (96-108) mmol/L Carbon Dioxide (22-29) mmol/L Anion Gap (12-20) BUN (9-16) mg/dL Creatinine (0.5-1.4) mg/dL Estim Creat Clear Calc Estimated GFR Random Glucose (60-115) mg/dL Calcium (8.4-10.2) mg/dL Total Bilirubin (0.0-1.0) mg/dL Direct Bilirubin (0.0-0.5) mg/dL AST (5-31) U/L ALT (0-31) U/L Alkaline Phosphatase (39-117) U/L Troponin I High Sens (<3.5-17.0) ng/L Total Protein (6.5-8.0) g/dL Albumin (3.5-5.0) g/dL Lipase (8-78) U/L Urine Color Straw Urine Appearance Hazy Urine pH 7.5 (5.0-9.0) Ur Specific [place] 1.010 (1.005-1.025) Urine Protein Negative (Neg-Trace) mg/dL Urine Glucose (UA) Negative (Negative) mg/dL Urine Ketones Negative (Negative) mg/dL Urine Blood Negative (Negative) Urine Nitrite Negative (Negative) Ur Leukocyte Esterase Trace H (Negative) Urine RBC 0-2 (0-2) /HPF Urine WBC 0-5 (0-5) /HPF Ur Squamous Epith Cells 3-5 (0-2) /HPF Urine Bacteria Trace (None Seen) Hyaline Casts 0-2 (0-2) /LPF Imaging Data Chest x-ray: Attestation: I personally reviewed and interpreted this imaging study as follows: Radiologist's impression: Unremarkable chest examination. ECG Data Attestation: I personally reviewed and interpreted this ECG as follows: Interpretation: Sinus bradycardia with premature supraventricular complex at a rate of 59. No ST-T changes. Discharge Plan Discharge Clinical Impression: Generalized weakness, Dehydration, Feeling grief Patient Disposition: Home, Self-Care Instructions: Dehydration (ED) Prescriptions: No Action benzonatate 100 mg capsule 100 mg PO TID PRN (Reason: cough) Qty: 14 0RF Referrals: Physician,Unknown J [Primary Care Provider] -
[2022-05-09 14:15] LABS: Appearance Urine Hazy; Color Urine Straw; Glucose Urine UA Negative (Negative); Leukocyte Esterase Urine Trace (Negative); Nitrite Urine Negative (Negative); PH 7.5 (5.0-9.0); UMIC TRIGGER UACC YES; Urine Blood Negative (Negative); Urine Ketones Negative (Negative); Urine Protein Negative (Neg-Trace)
[2022-05-09 14:22] LABS: Bacteria Urine Trace (None Seen); Hyaline Casts Urine 0-2 /LPF (0-2); RBC Urine 0-2 /HPF (0-2); WBC Urine 0-5 /HPF (0-5)
[2022-05-09 14:28] LABS: Troponin-I High Sensitivity 4.4 ng/L (<3.5-17.0)
[2022-05-09] MEDS: 0.9 % Sodium Chloride 1,000 ML 999 ML IV ×2 (14:45→15:44)
[2022-05-09 15:48] VITALS: BP 170/77; PULSE 66; RESP 18; TEMP 36.6; O2SAT 97
== END 2022-05-09 17:10 | disposition home or self-care (01) ==
PROVIDERS: Student in an Organized Health Care Education/Training Program; Emergency Provider Emergency Medicine
DX: R53.1 Weakness (principal); E86.0 Dehydration; F43.20 Adjustment disorder, unspecified; I10 Essential (primary) hypertension; Z79.899 Other long term (current) drug therapy; Z72.89 Other problems related to lifestyle; Z63.4 Disappearance and death of family member
CPT/HCPCS: 36415; 71045; 80048; 80076; 81001; 83690; 84484; 85025; 93005; 96360; 96361; 99284

== ENCOUNTER 2022-11-18 00:05 | Emergency (ER) | payer MEDICARE, SELFPAY ==
--- NOTE | ~2022-11-18 | XR_ITS ---
EXAMINATION: XR ANKLE, LEFT XR FOOT, LEFT CLINICAL INDICATION: Pain after fall COMPARISON: None TECHNIQUE: 3 views of the left ankle. 3 views of the left foot. FINDINGS: There is an essentially nondisplaced fracture at the base of the fifth metatarsal with adjacent soft tissue swelling. Remaining osseous structures of the foot and ankle appear intact. Articular alignment is anatomic. XR/XR ankle LT min 3V IMPRESSION: Essentially nondisplaced fracture at the base of the fifth metatarsal.
--- NOTE | ~2022-11-18 | XR_ITS ---
EXAMINATION: XR ANKLE, LEFT XR FOOT, LEFT CLINICAL INDICATION: Pain after fall COMPARISON: None TECHNIQUE: 3 views of the left ankle. 3 views of the left foot. FINDINGS: There is an essentially nondisplaced fracture at the base of the fifth metatarsal with adjacent soft tissue swelling. Remaining osseous structures of the foot and ankle appear intact. Articular alignment is anatomic. XR/XR foot LT min 3V IMPRESSION: Essentially nondisplaced fracture at the base of the fifth metatarsal.
[2022-11-18 00:18] VITALS: BP 190/72; PULSE 59; RESP 18; TEMP 36; O2SAT 100; BMI 22.7
[2022-11-18 03:19] VITALS: BP 184/71; PULSE 57; RESP 14; TEMP 36.5
[2022-11-18 03:25] VITALS: BP 184/71; PULSE 57; RESP 14; TEMP 36.5; O2SAT 100
--- NOTE | 2022-11-18 03:28 | ED_ITS ---
HPI - General Adult General Chief complaint: Fall Stated complaint: Fall/ Left foot pain Time Seen by Provider: 11/18/22 03:00 Source: patient and family (Daughter) Mode of arrival: ambulatory Limitations: no limitations History of Present Illness HPI narrative: 82-year-old female with sitting when she got up she felt tingling in the left foot, patient twisted her foot and fell over, complaining of pain in her left foot. No head injury, no neck pain, no LOC. Related Data Previous Rx's Medication Instructions Recorded benzonatate 100 mg capsule 100 mg PO TID PRN cough #14 caps 03/01/22 Allergies Allergy/AdvReac Type Severity Reaction Status Date / Time No Known Allergies Allergy Verified 11/18/22 00:24 Review of Systems Review of Systems: All other systems are reviewed and are negative Constitutional: Reports as per HPI and Reports no additional constitutional complaints Eyes: Reports as per HPI and Reports no additional eye complaints Reports system reviewed and no additional complaints, except as documented Cardiovascular: Reports as per HPI and Reports no additional cardiovascular complaints Respiratory: Reports as per HPI and Reports no additional respiratory complaints Gastrointestinal: Reports as per HPI and Reports no additional gastrointestinal complaints Genitourinary: Reports no additional female genitourinary complaints Musculoskeletal: Reports no additional musculoskeletal complaints Skin/Breast: Reports system reviewed and no additional complaints, except as docu Psychiatric: Reports no additional psychiatric complaints Endocrine: Reports no additional endocrine complaints Hematologic/Lymphatic: Reports no additional hematologic/lymphatic complaints Allergic/Immunologic: Reports no additional allergic/immunologic complaints Reports system reviewed and no additional complaints, except as documented and Reports Abnormal speech present [facility] Past Medical History Medical History HTN (hypertension) PAC (premature atrial contraction) Surgical History H/O heart surgery Social History Social History Patient Tobacco Use Status: Never used Tobacco Smoked in Last 30 Days: No Use of substances other than those prescribed or required for medical reasons: No Advance Directives: No Advance Directives Information Provided: No Physical Exam ED Vital Signs: Vital Signs - 24 hr 11/18/22 00:18 11/18/22 03:19 11/18/22 03:25 Temperature 96.8 F 97.7 F 97.7 F Pulse Rate 59 57 57 Respiratory Rate 18 14 14 Blood Pressure 190/72 H 184/71 H 184/71 H Pulse Oximetry 100 100 Oxygen Delivery Method Room Air Room Air BMI result Body Mass Index 22.7 Vital signs have been reviewed as appeared to be correct. Blood pressure normal. Heart rate normal. Respiration rate normal. Temperature normal. Oxygen saturation normal. Appearance: Alert. Oriented X3. No acute distress. Head: Normal external exam. Normocephalic. Atraumatic. No Dalton signs noted. No raccoon eyes noted Eyes: PERRLA. EOMI. Conjunctiva and sclera normal. Eyelids normal. ENT: TM's Normal. Pharynx normal. Uvula midline. Moist mucous membranes. No trismus noted. No drooling noted. No muffled voice noted. Neck: Normal inspection. Neck supple. FROM. No adenopathy. Thyroid Normal. No m eningeal signs. No neck mass noted. CVS: Normal heart rate and rhythm. Heart sound normal. No murmurs noted. Pulses normal throughout. Respiratory: No respiratory distress. Painless inspiration. Breath sounds normal. No wheezes/rales/rhonchi noted. Chest nontender. No accessory muscle usage noted or decreased air movement noted. Abdomen: Soft and nontender. Bowel sounds normal in all 4 quadrants. No distention noted. No organomegaly noted. No visible injury noted. Back: No CVA tenderness. Full range of motion noted. Skin: Skin warm and dry. Normal skin color. Normal skin turgor. No r ashes/lesions/lacerations noted. Extremities: Left foot: Tenderness at the base of 5th metatarsal bone with ecchymosis. Neuro: Oriented X 3. Cranial nerve exam: II-XII are grossly intact No motor deficit. No sensory deficit. Reflexes normal. Course Course Course Narrative: Left 5th metatarsal bone fracture, postop shoe, no weight-bearing, ice, NSAIDs if needed, follow-up with Orthopedic. Medical Decision Making Differential Diagnosis Differential Diagnoses: The differential diagnosis associated with the presentation includes Left foot contusion, left foot fracture. Independent Interpretation I performed an independent interpretation of an: Plain X-Ray (Left foot: Non displaced fracture of the base of the 5th metatarsal bone.) Radiology Impression Discussion of test interpretation with radiology: I have reviewed the radiologist's reading. Discharge Plan Discharge Clinical Impression: Fracture of metatarsal of left foot, closed Patient Disposition: Home, Self-Care Instructions: Foot Fracture in Adults (ED) Prescriptions: No Action benzonatate 100 mg capsule 100 mg PO TID PRN (Reason: cough) Qty: 14 0RF Referrals: Zion Forbes MD [Physician] - Av Chambers MD [Primary Care Provider] -
== END 2022-11-18 04:13 | disposition home or self-care (01) ==
PROVIDERS: Emergency Provider Emergency Medicine; PCP Internal Medicine
DX: S92.355A Nondisplaced fracture of fifth metatarsal bone, left foot, initial encounter for closed fracture (principal); X58.XXXA Exposure to other specified factors, initial encounter; Y93.89 Activity, other specified; Y92.019 Unspecified place in single-family (private) house as the place of occurrence of the external cause; Y99.9 Unspecified external cause status
CPT/HCPCS: 73610; 73630; 99283; 99284

== ENCOUNTER 2022-12-02 07:40 | Outpatient (REF) | payer MEDICARE, SELFPAY ==
--- NOTE | ~2022-12-02 | XR_ITS ---
EXAMINATION: XR FOOT, LEFT CLINICAL INFORMATION: Left foot pain. COMPARISON: November 18, 2022. TECHNIQUE: AP, lateral, and oblique views of the left foot. XR/XR foot LT min 3V FINDINGS/IMPRESSION: There has been no significant radiographic change compared with November 18, 2022. Examination again demonstrates a transverse, minimally displaced fracture at the base of the fifth metatarsal bone, with mild associated soft tissue swelling. No bony callus formation is identified. Findings suggest posttraumatic, postsurgical, or congenital changes involving the distal end of the fourth proximal phalanx. No new fracture or dislocation is seen. No lytic or sclerotic bony lesion is noted.
== END 2022-12-02 07:41 | disposition home or self-care (01) ==
LOC: HO.HOSX 07:40
PROVIDERS: Visit Provider Physician Assistant
DX: S92.302A Fracture of unspecified metatarsal bone(s), left foot, initial encounter for closed fracture (principal)
CPT/HCPCS: 73630; 99202

== ENCOUNTER 2023-01-06 09:39 | Outpatient (REF) | payer MEDICARE, SELFPAY ==
--- NOTE | ~2023-01-06 | XR_ITS ---
EXAMINATION: XR FOOT, LEFT CLINICAL INFORMATION: Pain COMPARISON: 12/02/22 TECHNIQUE: 3 views of the left foot. FINDINGS: The previously demonstrated transversely oriented fracture through the base of the fifth metatarsal is slightly indistinct. No change in position. Some interval callus has developed. There is osteopenia. Chronic appearing abnormality near the expected fourth and fifth PIP joints. XR/XR foot LT min 3V IMPRESSION: Some interval callus has developed. No change in position or alignment of the fracture through the base of the fifth metatarsal.
== END 2023-01-06 09:40 | disposition home or self-care (01) ==
LOC: HO.HOSX 09:39
PROVIDERS: Visit Provider Physician Assistant
DX: S92.302D Fracture of unspecified metatarsal bone(s), left foot, subsequent encounter for fracture with routine healing (principal)
CPT/HCPCS: 73630

== ENCOUNTER 2023-01-06 10:47 | Outpatient (AMB) | payer MEDICARE, SELFPAY ==
[2023-01-06 11:07] VITALS: BMI 22.7
--- NOTE | 2023-01-06 11:07 | A.OFFVIS_ITS ---
Intake Vital Signs 01/06/23 11:07 Height 5 ft 7 in Weight 145 lb BMI 22.7 Intake Visit Reasons: OV-Left 5th MT Fx 11/18/22 Intake Note: Suki a 82 year old female presents today for a follow up of left 5th MT fx, DOI 11/18/22. Patient reports she is doing well, denies pain. She discontinued use of boot due to boot causing pain. Allergies clotrimazole Allergy (Verified 01/06/23 11:14) body rash HPI OV-Left 5th MT Fx 11/18/22 HPI Details 82-year-old female who returns to the office today for a follow-up of left 5th metatarsal fracture, 11/18/22. She states she no pain but she does experiences swelling with prolonged standing. She also reports she is elevating her leg while sitting. She is doing well otherwise and has no concerns today. [facility] Medical History HTN (hypertension) PAC (premature atrial contraction) Surgical History H/O heart surgery Social History Patient Tobacco Use Status: Never used Tobacco Current occupational status: retired Review of Systems Const All systems reviewed & are unremarkable except as noted in HPI and below Physical Exam Vital Signs: BMI result Body Mass Index 22.7 Extrem Other: Left foot: Skin intact. Resolved bruising of the lateral edge of the left foot. There is mild tenderness with trace swelling at the base of the 5th metatarsal. Sensation intact. EHL intact. No pain along the mediolateral malleolus. Neurovascularly intact. Results Reviewed Results Reviewed: Xrays were obtained in the office today and personally reviewed by me of the left foot show non displaced fracture at the base of the 5th metatarsal with routine healing Assessment & Plan Assessment & Plan (1) Fracture of metatarsal of left foot, closed: Code(s): S92.302A - Fracture of unspecified metatarsal bone(s), left foot, initial encounter for closed fracture Plan She will increase activity as tolerated. I did explain that over the next 6 weeks she should notice some significant improvement in her pain with activities. If symptoms persist or worsens, patient will contact the office, otherwise follow-up as needed. Orders: Orders XR foot LT min 3V Today M79.672 - Pain in left foot Patient Instructions: Scribed for Edilberto Mike PA-C, by Hemant Rashid medical and health services manager, on 01/06/2023 at 11:00 AM EST. I, Edilberto Mike PA-C, have personally reviewed and agree with the information entered by the scribe. Coding Level of Care Code Global (00688) Diagnoses Fracture of metatarsal of left foot, closed S92.302A
== END 2023-01-06 12:06 | disposition home or self-care (01) ==
PROVIDERS: PCP Internal Medicine; Visit Provider Physician Assistant
DX: S92.355A Nondisplaced fracture of fifth metatarsal bone, left foot, initial encounter for closed fracture (principal)
CPT/HCPCS: 99024